=== PATIENT | female | born 2000 | race Caucasian/White ===

== ENCOUNTER 2020-06-21 11:25 | Emergency (ER) | payer BC ==
[~2020-06-21] VITALS: Ht 162.6 cm; Wt 66.8 kg
[2020-06-21 11:38] VITALS: TEMP 97.9
[2020-06-21] MEDS ORDERED: ALDACTONE 25MG25 M1 PO (11:45)
[2020-06-21 13:07] VITALS: BP 121/71; PULSE 74
== END 2020-06-21 13:07 | disposition home or self-care (01) ==
LOC: COL.ER 11:25
DX: S93.401A Sprain of unspecified ligament of right ankle, initial encounter (principal); W01.0XXA Fall on same level from slipping, tripping and stumbling without subsequent striking against object, initial encounter; Y92.091 Bathroom in other non-institutional residence as the place of occurrence of the external cause